=== PATIENT | female | born 1955 | race Hispanic/Latino ===

== ENCOUNTER → 2018-07-13 | Outpatient (CLI) | payer OTHER | END | disposition home or self-care (01) | LOC: RAH 10:39 | PROVIDERS: ATTEND Internal Medicine Gastroenterology | DX: R10.12 Left upper quadrant pain (principal); R11.2 Nausea with vomiting, unspecified; R14.0 Abdominal distension (gaseous); R68.81 Early satiety | CPT/HCPCS: 78264; A9541 ==